=== PATIENT | male | born 1990 | race African-American/Black ===

== ENCOUNTER 2017-02-19 14:19 | Emergency (ER) ==
[2017-02-19 14:25] VITALS: BP 115/72; TEMP 97.6; BMI 26.6
--- NOTE | 2017-02-19 14:29 | ED.PDOC ---
General ED Provider: Dr. LORENZA VÁZQUEZ Chief Complaint: Ankle Pain/Injury Stated Complaint: Blisters both ankles Time Seen by Physician: 14:29 Mode of Arrival: Walk-In Information Source: Patient Nursing and Triage Documentation Reviewed and Agree: Yes Review of Systems - Review Of Systems Constitutional: Reports: No symptoms Skin: Reports: Rash (Bilateral lower legs, vesicles) Endocrine: Reports: No symptoms. Denies: Excessive sweating All Other Systems: Reviewed and Negative Past Medical History - Past Medical History Previously Healthy: Yes Endocrine: Reports: None Cardiovascular: Reports: None Respiratory: Reports: None Hematological: Reports: None Gastrointestinal: Reports: None Genitourinary: Reports: None Neuro/Psych: Reports: None Musculoskeletal: Reports: None Cancer: Reports: None - Surgical History General Surgical History: Reports: None - Family History Family History: Reports: None - Social History Smoking Status: Current some day smoker Hx Substance Use: No Alcohol Screening: None - Immunizations Tetanus Shot up to Date: No Physical Exam - Physical Exam Appearance: Well-appearing Respiratory: Airway patent, Respirations nonlabored Musculoskeletal: Normal strength, ROM intact Skin: Warm, Dry, Normal color (Except for vesiclar rash in various stages of eruption and healing bilateral lower extremities.) Neurological: Sensation intact, Motor intact Psychiatric: Affect appropriate, Mood appropriate Critical Care Note - Critical Care Note Total Time (mins): 15 Course - Course Hematology/Chemistry: 02/19/17 14:49 02/19/17 14:49 Orders, Labs, Meds: Lab Review 02/19/17 14:49 WBC 5.84 RBC 4.91 Hgb 13.9 L Hct 41.6 L MCV 84.7 MCH 28.3 MCHC 33.4 RDW Coeff of Bita 12.8 Plt Count 264 Immature Gran % (Auto) 0.3 Neut % (Auto) 64.8 Lymph % (Auto) 23.8 [place] % (Auto) 8.7 Eos % (Auto) 1.7 Baso % (Auto) 0.7 Immature Gran # (Auto) 0.0 Neut # 3.8 Lymph # 1.4 [place] # 0.5 Eos # 0.1 Baso # 0.0 Sodium 140 Potassium 4.0 Chloride 107 Carbon Dioxide 24 Anion Gap 13.0 BUN 12 Creatinine 1.11 H Estimated GFR (MDRD) 96.00 BUN/Creatinine Ratio 10.81 Glucose 110 H Calcium 9.1 Total Bilirubin 0.36 AST 31 ALT 37 Alkaline Phosphatase 61 Total Protein 6.9 Albumin 3.7 Globulin 3.2 Albumin/Globulin Ratio 1.16 Orders Category Date Time Status CBC W/ AUTO DIFF Stat LAB 02/19/17 14:49 Completed COMPREHENSIVE METABOLIC PANEL Stat LAB 02/19/17 14:49 Completed CRP [C-REACTIVE PROTEIN] Stat LAB 02/19/17 14:49 Received Vital Signs: Temp Pulse Resp BP Pulse Ox 02/19/17 14:20 97.6 F 81 16 115/72 97 Departure - Departure Time of Disposition: 15:26 Disposition: HOME SELF-CARE Discharge Problem: Rash Instructions: Acute Rash (ED) Condition: Good Pt referred to PMD for follow-up: Yes (Call for appointment) Additional Instructions: Take medicaitons (prednisone and atarax) as prescribed. Follow up with Primary Care (Dr. Alston) next week; call for appointment. Plan follow up regardless of whether is improving or not. Prescriptions: Hydroxyzine HCl [Atarax] 25 mg PO TID #30 tablet Prednisone 20 mg PO DAILYWM #21 tablet Allergies/Adverse Reactions: Allergies bee venom protein (honey bee) Adverse Reaction (Verified 02/19/17 14:25) Home Medications: Ambulatory Orders Hydroxyzine HCl [Atarax] 25 mg PO TID #30 tablet 02/19/17 Prednisone 20 mg PO DAILYWM #21 tablet 02/19/17 Disposition Discussed With: Patient (Educated pt and re plan, medications and follow up with Dr. Worley - to call for appointment )
[2017-02-19 14:54] LABS: BASOPHILS % (AUTO) 0.7 % (0.0-3.0); EOSINOPHILS # (AUTO) 0.1 K/ul (0.0-0.7); EOSINOPHILS % (AUTO) 1.7 % (0.0-7.0); HEMATOCRIT 41.6 % (42.0-52.0); HEMOGLOBIN 13.9 g/dl (14.0-18.0); IMMATURE GRANULOCYTE % (AUTO) 0.3 % (0.0-5.0); LYMPHOCYTES # (AUTO) 1.4 K/uL (0.60-3.4); LYMPHOCYTES % (AUTO) 23.8 (10.0-50.0); MEAN CORPUSCULAR HEMOGLOBIN 28.3 pg (27.0-31.0); MEAN CORPUSCULAR HGB CONC 33.4 (31.8-35.4); MEAN CORPUSCULAR VOLUME 84.7 fl (80.0-94.0); MONOCYTES # (AUTO) 0.5 K/uL (0.4-2.0); MONOCYTES % (AUTO) 8.7 (0-10); NEUTROPHILS # (AUTO) 3.8 K/ul (2.0-6.9); NEUTROPHILS % (AUTO) 64.8; PLATELET COUNT 264 10^3/uL (140-440); RED BLOOD COUNT 4.91 10^6/ul (4.70-6.10); WHITE BLOOD COUNT 5.84 K/ul (4.2-10.2)
[2017-02-19 15:14] LABS: ALBUMIN 3.7 g/dL (3.4-5.0); ALBUMIN/GLOBULIN RATIO 1.16; BILIRUBIN,TOTAL 0.36 mg/dL (0.00-1.20); BUN/CREATININE RATIO 10.81; CALCIUM 9.1 mg/dL (8.2-10.2); CREATININE 1.11 mg/dL (0.60-1.10); TOTAL PROTEIN 6.9 g/dL (6.4-8.2)
== END 2017-02-19 15:31 | disposition home or self-care (01) ==
LOC: ED 14:19
DX: R21 Rash and other nonspecific skin eruption (principal); F17.210 Nicotine dependence, cigarettes, uncomplicated
CPT/HCPCS: 36415; 80053; 85025; 86140; 99282